=== PATIENT | female | born 1980 | race Caucasian/White ===

== ENCOUNTER 2017-08-16 08:46 | Outpatient (CLI) | payer OTHER ==
[2017-08-16 09:37] LABS: eGFR (African) > 60; eGFR (Non-African) > 60
== END 2017-08-16 08:47 ==
LOC: LAB 08:46
PROVIDERS: ATTEND Family Medicine
DX: L29.9 Pruritus, unspecified (principal); R79.89 Other specified abnormal findings of blood chemistry
CPT/HCPCS: 36415; 80053; 80074

== ENCOUNTER 2017-08-17 08:34 | Outpatient (CLI) | payer OTHER ==
[2017-08-17 09:35] LABS: eGFR (African) > 60; eGFR (Non-African) > 60
--- NOTE | 2017-08-17 11:37 | Diagnostic Imaging Report ---
PRANAV CORTÉS [facility] [id number] [facility] [address] [place], [place]. [address] Report Submission Date: Aug 17, 2017 9:04:06 AM CDT Patient Study Name: ADONAY CARLSON Date: Aug 17, 2017 8:46:25 AM CDT Modality Type: CR Gender: F Description: ABDOMEN : 84 Institution: [facility] [place] [facility] Physician: PRANAV CORTÉS Examination: Obstruction series History: Abdominal discomfort Findings: 3 views obtained of the abdomen. No abnormal dilation of the large or small bowel. Air and stool throughout the large bowel. No suspicious calcification projecting over the renal fossa or the lower pelvic region. Osseous structures are appropriate for age. Impression: No obstruction. No suspicious calcifications by plain film sensitivity. Electronically signed on Aug 17, 2017 9:04:06 AM CDT by: Xavier NAVARRO
== END 2017-08-17 08:40 ==
LOC: LAB 08:34
PROVIDERS: ATTEND Family Medicine
DX: R79.89 Other specified abnormal findings of blood chemistry (principal); R10.84 Generalized abdominal pain; K59.00 Constipation, unspecified
CPT/HCPCS: 36415; 74020; 80053

== ENCOUNTER 2017-08-23 15:46 | Outpatient (CLI) | payer OTHER | END 2017-08-23 15:47 | LOC: LAB 15:46 | PROVIDERS: ATTEND Nurse Practitioner | DX: N83.209 Unspecified ovarian cyst, unspecified side (principal) | CPT/HCPCS: 36415; 86304 ==

== ENCOUNTER 2018-11-01 08:01 | Outpatient (CLI) | payer OTHER ==
[2018-11-01 09:01] LABS: eGFR (Non-African) > 60
== END 2018-11-01 08:08 ==
LOC: LAB 08:01
PROVIDERS: ATTEND Family Medicine
DX: Z00.00 Encounter for general adult medical examination without abnormal findings (principal); Z13.6 Encounter for screening for cardiovascular disorders
CPT/HCPCS: 36415; 80053; 80061

== ENCOUNTER 2019-04-07 11:26 | Outpatient (CLI) | payer OTHER ==
[2019-04-16 15:34] LABS: BASOPHILS % 0.6 % (0.0-1.5); NEUTROPHILS # 8.4 # k/uL (1.4-7.7)
== END 2019-04-07 11:31 | disposition home or self-care (01) ==
LOC: LAB 11:26
PROVIDERS: ATTEND Family Medicine
DX: R73.9 Hyperglycemia, unspecified (principal); D72.829 Elevated white blood cell count, unspecified
CPT/HCPCS: 36415; 83036; 85025

== ENCOUNTER 2019-09-25 17:31 | Emergency (ER) | payer OTHER ==
--- NOTE | 2019-09-25 17:54 | ED Physician Documentation ---
Flank Pain - HISTORIAN Historian: patient - HPI Stated Complaint: left flank pain, nausea Chief Complaint: Flank Pain Additional Information: Patient presents to ED with left flank pain since noon today followed by nausea/vomiting this afternoon. Onset: hours (6) Duration: constant Timing: still present Context: denies: out of country travel Severity: moderate Quality: aching, sharp, stabbing Associated Symptoms: nausea, vomiting. denies: fever Exacerbated by: nothing Relieved by: nothing - ROS CONST: no problems GI/: none CVS/RESP: none EYES/ENT: none MS/SKIN/LYMPH: none NEURO/PSYCH: none - SOCIAL HX Smoking History: non-smoker Alcohol Use: none Drug Use: none - FAMILY HX Family History: none - PAST HX Past History: none Ischemic Bowel Risk Factors: none Other History: none Surgeries/Procedures: none Medications: see nurse note Allergies: see nurses note - REVIEWED ASSESSMENTS Nursing Assessment Reviewed: Yes Vitals Reviewed: Yes Progress - Progress Progress: Report Submission Date: Sep 25, 2019 6:46:14 PM [employer] Patient Study Name: ADONAY CARLSON Date: Sep 25, 2019 6:12:40 PM [employer] Modality Type: CT\SR Gender: F Description: CT ABD PELVIS W/O CO : 84 Institution: [facility] Physician: ZAKIYA BEVERLY CT abdomen and pelvis without IV contrast Clinical history: Left flank pain Radiation dose DLP 1130 Hepatomegaly with hepatic steatosis and mild splenomegaly. Normal pancreas and adrenal glands. 2 stones in the left renal pelvis with additional stones in the lobe of the left kidney with a calculus is seen in the left pelvic junction with moderate left hydronephrosis. No bowel obstruction. No free fluid or free air in the abdomen or pelvis. No pelvic or retroperitoneal adenopathy. 7.5 cm right adnexal cyst Impression: 8 mm calculus at the left ureteropelvic junction with moderate the left hydronephrosis. Additional stones are seen in the lower pole of the left kidney. No stones in the right kidney. Moderate hepatomegaly with hepatic steatosis. Mild splenomegaly. 7.5 cm right adnexal cyst overlying the bladder Electronically signed on Sep 25, 2019 6:46:14 PM [employer] by: Fernie Whittaker ED Results Lab/Radiology - Orders Orders: ED Orders Category Date Time Status UA W/MICRO IF INDICATED Routine Lab 09/25/19 17:46 Ordered URINE HCG Stat Lab 09/25/19 Uncollected Ondansetron HCl Rapdis [Zofran Odt] Med 09/25/19 17:50 Once 4 mg PO NOW ONE Abdominal Pain Physical Exam - Physical Exam General Appearance: alert EENT: [place] NECK: supple RESPIRATORY: no resp distress, breath sounds normal CVS: reg rate & rhythm, heart sounds normal ABDOMEN: soft, normal bowel sounds, non-tender BACK: normal inspection, CVA tenderness (L) SKIN: warm/dry, normal color EXTREMITIES: non-tender NEURO: oriented X3, mood/affect nml Discharge Clincal Impression: Kidney stone on left side Prescriptions: Ondansetron HCl Rapdis [Zofran Odt] 4 mg PO Q8 PRN #20 tab PRN Reason: nausea/vomiting Referrals: Li Cronin MD [Primary Care Provider] - 2 Days Additional Instructions: 1. Ibuprofen 600mg every 6 hours as needed for pain 2. Ponder every 4 hours as needed for break through pain 3. Zofran every 8 hours as needed for nausea 4. Drink plenty of fluids to maintain proper hydration to flush stone. Avoid caffeine, energy drinks and alcohol 5. Call [facility] tomorrow morning at 8:00 am to schedule an appointment for 8 mm kidney stone [address] [address] 6. Return to ER for new or worsening symptoms Condition: Stable Disposition: 01 HOME, SELF-CARE Decision to Admit: NO Date of Decison to Admit: 09/25/19 Decision Time: 19:45
[2019-09-25] MEDS: 0.9 % SODIUM CHLORIDE 1,000 ML IV ONE (18:04)
[2019-09-25] MEDS: ONDANSETRON HCL/PF 4 MG/ 2ML VIAL IVP ONE (18:04)
[2019-09-25] MEDS: ONDANSETRON HCL 4 MG TAB.RAPDIS PO ONE (18:06)
[2019-09-25 18:19] LABS: BASOPHILS % 0.5 % (0.0-1.5); NEUTROPHILS # 8.4 # k/uL (1.4-7.7)
[2019-09-25] MEDS: KETOROLAC TROMETHAMINE 30 MG/1ML VIAL IV ONE (18:20)
[2019-09-25 18:31] LABS: eGFR (Non-African) > 60
--- NOTE | 2019-09-25 18:51 | Diagnostic Imaging Report ---
PATIENT MR#: [id number] PATIENT PATIENT NAME: ADONAY CARLSON DATE OF : 1980 REFERRING PHYSICIAN: Sheri Deras EXAM DATE: 09/25/2019 ACCESSION NUMBER: [id number] EXAM DESCRIPTION: CT ABD PELVIS W/O CO CT abdomen and pelvis without IV contrast Clinical history: Left flank pain Radiation dose DLP 1130 Hepatomegaly with hepatic steatosis and mild splenomegaly. Normal pancreas and adrenal glands. 2 ston es in the left renal pelvis with additional stones in the lobe of the left kidney with a calculus is seen in the lef t pelvic junction with moderate left hydronephrosis. No bowel obstruction. No free fluid or free air in the abdomen or pelvis. No pelvic or retroperitoneal adenopathy. 7.5 cm right adnexal cyst Impression: 8 mm calculus at the left ureteropelvic junction with moderate the left hydronephrosis. Additional stones are seen in the lower pole of the left kidney. No stones in the right kidney. Moderate hepatomegaly with hepatic steatosis. Mild splenomegaly. 7.5 cm right adnexal cyst overlying the bladder Read by: Dr. Fernie Whittaker Transcribed by: Transcribed Date: Electronically signed by: Dr. Fernie Whittaker Date signed: 09/25/2019 6:50:44 PM
[2019-09-25 19:52] VITALS: BP 181/84
[2019-09-26 06:13] LABS: APPEARANCE,URINE CLEAR (CLEAR); COLOR,URINE YELLOW (YELLOW); OCCULT BLOOD,URINE 2+ (NEGATIVE); UROBILINOGEN URINE 0.2 Eu (0.2-1.0)
== END 2019-09-25 19:30 | disposition home or self-care (01) ==
LOC: ED 17:31
DX: N20.0 Calculus of kidney (principal)
CPT/HCPCS: 74176; 80053; 81002; 85025; 96361; 96374; 96375; 99284; J1885; J2405; J7030; S1016